=== PATIENT | male | born 1960 | race American Indian/Alaskan Native ===

== ENCOUNTER 2017-06-19 18:15 | Emergency (ER) | payer MEDICARE ==
[2017-06-19 19:25] LABS: Basophils % (Auto) 0.6 % (0.0-1.8); Eosinophils # (Auto) 0.1 K/mm3 (0.0-0.4); Eosinophils % (Auto) 1.8 % (0.0-4.3); Hematocrit 43.7 % (35.5-45.6); Hemoglobin 14.7 gm/dl (11.8-15.2); Lymphocytes % (Auto) 25.7 % (13.4-35.0); Mean Corpuscular HGB Conc 34 % (32-34); Mean Corpuscular Hemoglobin 30 pg (28-32); Mean Corpuscular Volume 89 fl (84-94); Monocytes # (Auto) 0.6 K/mm3 (0.0-0.8); Monocytes % (Auto) 7.4 % (0.0-7.3); Platelet Count 333 K/mm3 (140-440); Red Blood Count 4.89 M/mm3 (3.65-5.03); Red Cell Distribution Width 14.2 % (13.2-15.2)
[2017-06-19 19:37] LABS: Alanine Aminotransferase 13 units/L (7-56); Albumin 3.8 g/dL (3.9-5); BUN/Creatinine Ratio 14; Blood Urea Nitrogen 18 mg/dL (9-20); Calcium 9.1 mg/dL (8.4-10.2); Hemolysis Index 10
--- NOTE | 2017-06-19 21:02 | XRay Report ---
FINAL REPORT EXAM: XR CHEST ROUTINE 2V HISTORY: Upper Respiratory Infection TECHNIQUE: 2 views of the chest. PRIORS: None. FINDINGS: The cardiomediastinal silhouette appears normal. The lungs are clear. The bones and soft tissues are unremarkable. IMPRESSION: No evidence of acute cardiopulmonary disease
[2017-06-19] MEDS ORDERED: MESTINON PO ONE (22:22)
[2017-06-19] MEDS ORDERED: DELTASONE PO ONE (22:22)
[2017-06-19] MEDS ORDERED: PROVENTIL IH ONE (22:24)
--- NOTE | 2017-06-19 22:25 | Emergency Department Report ---
ED Recheck HPI - General Chief Complaint: Upper Respiratory Infection Stated Complaint: RIGHT UPPER CHEST INJURY Time Seen by Provider: 06/19/17 22:07 Source: patient Mode of arrival: Ambulatory Limitations: No Limitations - History of Present Illness Initial Comments: 57-year-old male past medical history myasthenia gravis, asthma presents with request for refill on his Mestinon which she takes for myasthenia gravis. Patient states he has been out of it for approximately 1-1/2 months. Plans to follow up with his primary care doctor and neurologist within the next week and a half. Patient is awake alert and oriented 3. States that he has been having some intermittent weakness associated with this history of myasthenia gravis which is typical when he is not taking his medications on a regular basis. Patient states that earlier today he accidentally turned and hit the right side of his chest on a cabinet at home. Denies any other symptoms. Denies fevers chills nausea vomiting dysuria or hematuria blurry vision or headache. MD Complaint: medication refill request Onset/Timin -: month(s) - Related Data Previous Rx's Medication Instructions Recorded Last Taken Type Acetaminophen/Codeine [Tylenol #3] 1 tab PO Q6H PRN #15 tab 01/26/16 Unknown Rx Ibuprofen [Motrin] 800 mg PO Q8HR PRN #21 tablet 01/26/16 Unknown Rx Albuterol Sulfate [Ventolin Hfa] 1 puff IH Q4H PRN #1 hfa.aer.ad 06/20/17 Unknown Rx Azithromycin [Zithromax Z-MONSERRAT] 250 mg PO QDAY #1 pack 06/20/17 Unknown Rx Prednisone [predniSONE 10 mg 10 mg PO .TAPER #1 tab.ds.pk 06/20/17 Unknown Rx (6-Day Pack, 21 Tabs)] Pyridostigmine [Mestinon] 60 mg PO Q4HR #84 tab 06/20/17 Unknown Rx Allergies Allergy/AdvReac Type Severity Reaction Status Date / Time No Known Allergies Allergy Unverified 01/26/16 07:19 ED Review of Systems ROS: Stated complaint: RIGHT UPPER CHEST INJURY Other details as noted in HPI Constitutional: malaise. denies: chills, fever Eyes: denies: eye pain, eye discharge, vision change ENT: denies: ear pain, throat pain Respiratory: cough. denies: shortness of breath, wheezing Cardiovascular: denies: chest pain, palpitations Endocrine: no symptoms reported Gastrointestinal: denies: abdominal pain, nausea, diarrhea Genitourinary: denies: urgency, dysuria Musculoskeletal: denies: back pain, joint swelling, arthralgia Skin: denies: rash, lesions Neurological: denies: headache, weakness, paresthesias Psychiatric: denies: anxiety, depression Hematological/Lymphatic: denies: easy bleeding, easy bruising ED Past Medical Hx - Past Medical History Hx Hypertension: Yes Hx Arthritis: Yes Additional medical history: myasthenia gravis, bilateral breast reduction, lypoma on back - Surgical History Additional Surgical History: right hip replacement x 2 - Social History Smoking Status: Current Every Day Smoker Substance Use Type: Alcohol - Medications Home Medications: Home Medications Medication Instructions Recorded Confirmed Last Taken Type Acetaminophen/Codeine [Tylenol #3] 1 tab PO Q6H PRN #15 tab 01/26/16 Unknown Rx Ibuprofen [Motrin] 800 mg PO Q8HR PRN #21 tablet 01/26/16 Unknown Rx Albuterol Sulfate [Ventolin Hfa] 1 puff IH Q4H PRN #1 hfa.aer.ad 06/20/17 Unknown Rx Azithromycin [Zithromax Z-MONSERRAT] 250 mg PO QDAY #1 pack 06/20/17 Unknown Rx Prednisone [predniSONE 10 mg 10 mg PO .TAPER #1 tab.ds.pk 06/20/17 Unknown Rx (6-Day Pack, 21 Tabs)] Pyridostigmine [Mestinon] 60 mg PO Q4HR #84 tab 06/20/17 Unknown Rx ED Physical Exam - General Limitations: No Limitations General appearance: alert, in no apparent distress - Head Head exam: Present: atraumatic, normocephalic - Eye Eye exam: Present: normal appearance, PERRL, EOMI - ENT ENT exam: Present: mucous membranes moist - Neck Neck exam: Present: normal inspection - Respiratory Respiratory exam: Present: normal lung sounds bilaterally (lungs clear to auscultation bilaterally). Absent: respiratory distress - Cardiovascular Cardiovascular Exam: Present: regular rate, normal rhythm. Absent: systolic murmur, diastolic murmur, rubs, gallop - GI/Abdominal GI/Abdominal exam: Present: soft (abdomen soft nontender nondistended), normal bowel sounds - Rectal Rectal exam: Present: deferred - Extremities Exam Extremities exam: Present: normal inspection - Back Exam Back exam: Present: normal inspection - Neurological Exam Neurological exam: Present: alert, oriented X3, CN II-XII intact, normal gait - Expanded Neurological Exam Expanded Patient oriented to: Present: person, place, time Cranial nerves: EOM's Intact: Normal Cerebellar function: Finger to Nose: Normal, Heel to Major: Normal, Romberg: Normal Sensory exam: Upper Extremity Light Touch: Normal, Lower Extremity Light Touch: Normal Motor strength exam: RUE: 5, LUE: 5, RLE: 5, LLE: 5 Best Eye Response ([place]): (4) open spontaneously Best Motor Response (Venkat): (6) obeys commands Best Verbal Response ([place]): (5) oriented [place] Total: 15 - Psychiatric Psychiatric exam: Present: normal affect, normal mood - Skin Skin exam: Present: warm, dry, intact, normal color. Absent: rash ED Course Vital Signs 06/19/17 18:19 Temperature 98 F Pulse Rate 80 Respiratory 18 Rate Blood Pressure 178/96 O2 Sat by Pulse 99 Oximetry ED Recheck MDM - Medical Decision Making A/P: Refill on myasthenia gravis medicine, right chest wall discomfort 1-CT shows no acute fractures, old rib fractures on right. No pneumonia. Slight right sided minimal atelectasis. This patient states he has had slight cough which has persisted for 2 weeks will cover patient empirically with azithromycin. Will also provide patient with refill on albuterol 2-prednisone dose pack, will give patient refill on mestinon. pt stated to me that his Neurologist is Dr. Michele Grant with [facility] and that he has arranged for f/u with the next 1.5 weeks. pt provided the following numbers for offices: [phone], . I informed patient that I would give him a limited prescription for this medicine as it is vital that he follows up as an outpatient for his chronic condition. 3- patient can take Tylenol for pain 4- vital signs stable for discharge. I advised patient to return to he ED if he develops fevers chills nausea vomiting chest pain shortness of breath or increasing weakness. Patient stated he understood my instructions Critical care attestation.: If time is entered above; I have spent that time in minutes in the direct care of this critically ill patient, excluding procedure time. ED Disposition Clinical Impression: Medication refill, Myasthenia gravis, Cough, Chest wall pain Disposition: TO HOME OR SELFCARE Is pt being admited?: No Does the pt Need Aspirin: No Condition: Stable Instructions: Myasthenia Gravis (ED), Cold Symptoms (ED) Prescriptions: Albuterol Sulfate [Ventolin Hfa] 1 puff IH Q4H PRN #1 hfa.aer.ad PRN Reason: Cough Azithromycin [Zithromax Z-MONSERRAT] 250 mg PO QDAY #1 pack Prednisone [predniSONE 10 mg (6-Day Pack, 21 Tabs)] 10 mg PO .TAPER #1 tab.ds.pk Pyridostigmine [Mestinon] 60 mg PO Q4HR #84 tab Referrals: ANA MARÍA CANALES MD [Primary Care Provider] - 3-5 Days [facility] [Outside] - 3-5 Days Forms: Work/School Release Form(ED) Time of Disposition: 00:50
[2017-06-19] MEDS ORDERED: TYLENOL #3 PO ONE (22:27)
--- NOTE | 2017-06-20 00:16 | Cat Scan Report ---
FINAL REPORT PROCEDURE: CT CHEST WO CON TECHNIQUE: Computerized axial tomography of the chest was performed without contrast material. This study is performed without intravenous contrast and the sensitivity for pathology, including neoplasms, adenopathy, abscess, pulmonary embolism and aortic dissection, is reduced. HISTORY: s/p fall hit right side ribs, RT UPPER CHEST rib pain COMPARISON: No prior studies are available for comparison. TECHNICAL QUALITY: Satisfactory. FINDINGS: Heart and pericardium: Normal. Thoracic aorta: Normal. Pulmonary vasculature: Normal. Lymph nodes: No enlarged thoracic lymph nodes. Lungs: Slight atelectasis right lower lung. The remainder the lungs are clear. No effusion or pneumothorax. The central airway is patent. Pleural space: No effusion, thickening, or pneumothorax. Musculoskeletal structures: Mild degenerative changes of the thoracic spine. Old healed fractures of the posterior right 9th and 10th ribs.. Upper abdominal structures: No significant abnormality. IMPRESSION: Slight right lower lung atelectasis. No evidence of a consolidation, effusion or pneumothorax. Old healed rib fractures involving the right posterior 9th and 10th ribs. Mild arthritic change of the thoracic spine..
[2017-06-20 03:09] VITALS: BP 173/86
== END 2017-06-20 01:05 | disposition home or self-care (01) ==
LOC: ED 18:15
DX: G70.00 Myasthenia gravis without (acute) exacerbation (principal); R07.89 Other chest pain; I10 Essential (primary) hypertension; M19.90 Unspecified osteoarthritis, unspecified site; F17.200 Nicotine dependence, unspecified, uncomplicated
CPT/HCPCS: 36415; 71046; 71250; 80053; 85025; 99284; J7512

== ENCOUNTER 2017-11-24 05:32 | Emergency (ER) | payer MEDICARE ==
[2017-11-24] MEDS ORDERED: DELTASONE PO ONE (07:51)
[2017-11-24] MEDS ORDERED: NORVASC PO ONE (07:51)
--- NOTE | 2017-11-24 07:53 | Emergency Department Report ---
ED General Adult HPI - General Chief complaint: Medical Clearance Stated complaint: RX REFILL Time Seen by Provider: 11/24/17 07:35 Source: patient Mode of arrival: Ambulatory Limitations: No Limitations - History of Present Illness Initial comments: This is a 57-year-old male reports that he is out of his myasthenic gravis medication which is Mestinon 60 mg every 4 hours, and he feels like he is having a flareup and he would like to get a refill. Patient stated that he does not have transportation to get to his doctor in unit in and he has not seen his doctor because of lack of transportation but he needs a referral to a neurologist and also to her primary care. Patient saw Dr. Liu was a neurologist at [facility]. He reports some shortness of breath and think it is because he has been out of his myasthenic gravis medication and he is having a flare up. Denies any chest pain. Denies any nausea or vomiting. Denies any headache but report nasal congestion and runny nose for over 2 weeks. He denies any fever or chills. Patient has a history of high blood pressure and he is on Norvasc and Diovan and is requesting a refill of that also. Denies any pain. Blood pressure is 175/104. Denies any blurred vision or dizziness. Patient was here in June 2017 and he said that he saw is in [place] in August and August and he gave him 90 days supply of medication but she said he completed the end of October . He said he is supposed to have follow-up visit in the first week of November but he could not get a ride and so cannot get a ride to [place]. Complaint: shortness of breath and medication refill Associated Symptoms: cough, shortness of breath, other (nasal congestion and runny nose). denies: confusion, chest pain, diaphoresis, fever/chills, headaches, loss of appetite, malaise, nausea/vomiting, syncope, weakness - Related Data Previous Rx's Medication Instructions Recorded Last Taken Type Acetaminophen/Codeine [Tylenol #3] 1 tab PO Q6H PRN #15 tab 01/26/16 Unknown Rx Ibuprofen [Motrin] 800 mg PO Q8HR PRN #21 tablet 01/26/16 Unknown Rx Acetaminophen [Acetaminophen TAB] 500 mg PO Q6HR PRN #20 tablet 06/20/17 Unknown Rx Albuterol Sulfate [Ventolin Hfa] 1 puff IH Q4H PRN #1 hfa.aer.ad 06/20/17 Unknown Rx Prednisone [predniSONE 10 mg 10 mg PO .TAPER #1 tab.ds.pk 06/20/17 Unknown Rx (6-Day Pack, 21 Tabs)] Amlodipine Besylate [Norvasc] 10 mg PO QAM 14 Days #14 tablet 11/24/17 Unknown Rx Azithromycin [Zithromax Z-PARISH] 250 mg PO QDAY #1 pack 11/24/17 Unknown Rx Fluticasone [Flonase] 1 spray NS QDAY 14 Days #1 bottle 11/24/17 Unknown Rx Pyridostigmine [Mestinon] 60 mg PO Q4HR #42 tab 11/24/17 Unknown Rx Valsartan [Diovan] 80 mg PO QAM 14 Days #14 tablet 11/24/17 Unknown Rx amLODIPine [Norvasc] 10 mg PO DAILY 14 Days #14 tab 11/24/17 Unknown Rx predniSONE [Deltasone] 10 mg PO BID 14 Days #28 tab 11/24/17 Unknown Rx Allergies Allergy/AdvReac Type Severity Reaction Status Date / Time No Known Allergies Allergy Unverified 01/26/16 07:19 ED Review of Systems ROS: Stated complaint: RX REFILL Other details as noted in HPI ED Past Medical Hx - Past Medical History Previous Medical History?: Yes Hx Hypertension: Yes Hx Arthritis: Yes Additional medical history: myasthenia gravis, bilateral breast reduction, lypoma on back - Surgical History Past Surgical History?: Yes Additional Surgical History: right hip replacement x 2 - Family History Family history: hypertension - Social History Smoking Status: Former Smoker Substance Use Type: None - Medications Home Medications: Home Medications Medication Instructions Recorded Confirmed Last Taken Type Acetaminophen/Codeine [Tylenol #3] 1 tab PO Q6H PRN #15 tab 01/26/16 Unknown Rx Ibuprofen [Motrin] 800 mg PO Q8HR PRN #21 tablet 01/26/16 Unknown Rx Acetaminophen [Acetaminophen TAB] 500 mg PO Q6HR PRN #20 tablet 06/20/17 Unknown Rx Albuterol Sulfate [Ventolin Hfa] 1 puff IH Q4H PRN #1 hfa.aer.ad 06/20/17 Unknown Rx Prednisone [predniSONE 10 mg 10 mg PO .TAPER #1 tab.ds.pk 06/20/17 Unknown Rx (6-Day Pack, 21 Tabs)] Amlodipine Besylate [Norvasc] 10 mg PO QAM 14 Days #14 tablet 11/24/17 Unknown Rx Azithromycin [Zithromax Z-PARISH] 250 mg PO QDAY #1 pack 11/24/17 Unknown Rx Fluticasone [Flonase] 1 spray NS QDAY 14 Days #1 bottle 11/24/17 Unknown Rx Pyridostigmine [Mestinon] 60 mg PO Q4HR #42 tab 11/24/17 Unknown Rx Valsartan [Diovan] 80 mg PO QAM 14 Days #14 tablet 11/24/17 Unknown Rx amLODIPine [Norvasc] 10 mg PO DAILY 14 Days #14 tab 11/24/17 Unknown Rx predniSONE [Deltasone] 10 mg PO BID 14 Days #28 tab 11/24/17 Unknown Rx ED Physical Exam - General Limitations: No Limitations General appearance: alert, in no apparent distress - Head Head exam: Present: atraumatic, normocephalic, normal inspection, other - Eye Eye exam: Present: normal appearance, PERRL, EOMI. Absent: nystagmus Pupils: Present: normal accommodation - ENT ENT exam: Present: normal orophraynx, mucous membranes moist, normal external ear exam, other (pattern nasal mucosa congested with erythema and clear drainage ). Absent: normal exam, TM's normal bilaterally (bilateral TM congested without erythema) - Neck Neck exam: Present: normal inspection, tenderness, full ROM. Absent: meningismus, lymphadenopathy - Respiratory Respiratory exam: Present: normal lung sounds bilaterally, other (dry cough). Absent: respiratory distress, wheezes, rales, rhonchi, stridor, chest wall tenderness, accessory muscle use, decreased breath sounds, prolonged expiratory - Cardiovascular Cardiovascular Exam: Present: regular rate, normal rhythm, normal heart sounds. Absent: systolic murmur, diastolic murmur - GI/Abdominal GI/Abdominal exam: Present: soft, normal bowel sounds. Absent: tenderness - Extremities Exam Extremities exam: Present: normal inspection, full ROM, normal capillary refill , other (No cce. + 2 pulses in all extremities, no neurovascular compromise). Absent: tenderness, pedal edema, joint swelling, calf tenderness - Back Exam Back exam: Present: normal inspection, full ROM. Absent: tenderness, CVA tenderness (R), CVA tenderness (L), muscle spasm, paraspinal tenderness, vertebral tenderness, rash noted - Neurological Exam Neurological exam: Present: alert, oriented X3, normal gait, reflexes normal. Absent: motor sensory deficit - Expanded Neurological Exam Expanded Neurological exam: Absent: innattentive, memory loss-remote event, memory loss- recent event, ataxia, receptive aphasia, expressive aphasia, total aphasia, tremor, protecting the airway Patient oriented to: Present: person, place, time Cranial nerves: EOM's Intact: Normal Upper motor neuron: Sensory Extinction: Normal Motor strength exam: RUE: 5, LUE: 5, RLE: 5, LLE: 5 Best Eye Response (Venkat): (4) open spontaneously Best Motor Response (Venkat): (6) obeys commands Best Verbal Response (Venkat): (5) oriented [place] Total: 15 - Psychiatric Psychiatric exam: Present: normal affect, normal mood - Skin Skin exam: Present: warm, dry, intact, normal color. Absent: rash ED Course Vital Signs 11/24/17 11/24/17 05:40 08:03 Temperature 97.9 F Pulse Rate 89 88 Respiratory 18 Rate Blood Pressure 175/104 175/100 O2 Sat by Pulse 98 Oximetry Vital Signs 11/24/17 11/24/17 11/24/17 05:40 08:03 09:20 Temperature 97.9 F Pulse Rate 89 88 Respiratory 18 Rate Blood Pressure 175/104 175/100 Blood Pressure 162/88 [Left] O2 Sat by Pulse 98 Oximetry - Reevaluation(s) Reevaluation #1: 11/24/17 08:42 Patient received Norvasc 5 mg by mouth and Deltasone 60 mg by mouth in emergency room ED Medical Decision Making - Lab Data Result diagrams: 11/24/17 08:17 11/24/17 08:15 Lab Results 11/24/17 11/24/17 Range/Units 08:15 08:17 WBC 6.5 (4.5-11.0) K/mm3 RBC 5.18 H (3.65-5.03) M/mm3 Hgb 15.7 H (11.8-15.2) gm/dl Hct 45.7 H (35.5-45.6) % MCV 88 (84-94) fl MCH 30 (28-32) pg MCHC 34 (32-34) % RDW 14.2 (13.2-15.2) % Plt Count 266 (140-440) K/mm3 Lymph % (Auto) 46.0 H (13.4-35.0) % Mobile % (Auto) 9.2 H (0.0-7.3) % Eos % (Auto) 2.0 (0.0-4.3) % Baso % (Auto) 0.5 (0.0-1.8) % Lymph # 3.0 (1.2-5.4) K/mm3 Mobile # 0.6 (0.0-0.8) K/mm3 Eos # 0.1 (0.0-0.4) K/mm3 Baso # 0.0 (0.0-0.1) K/mm3 Seg Neutrophils % 42.3 (40.0-70.0) % Seg Neutrophils # 2.8 (1.8-7.7) K/mm3 Sodium 141 (137-145) mmol/L Potassium 4.5 (3.6-5.0) mmol/L Chloride 105.0 (98-107) mmol/L Carbon Dioxide 26 (22-30) mmol/L Anion Gap 15 mmol/L BUN 11 (9-20) mg/dL Creatinine 1.6 H (0.8-1.5) mg/dL Estimated GFR 54 ml/min BUN/Creatinine Ratio 7 % Glucose 101 H (75-100) mg/dL Calcium 9.2 (8.4-10.2) mg/dL Patient creatinine has been a previously in the past but after reviewing chart is current was 1.5 in June 2016 and the said in the past that this pain up with his primary care doctor checked it - Radiology Data Radiology results: report reviewed Chest x-ray 2 views dictated by radiologist and report reviewed by myself. Patient's with mild COPD without any acute abnormalities. Patient: EDSON GONZALEZ MR#: [id number] : 1960 Acct:[id number] Age/Sex: 57 / M ADM Date: 11/24/17 Loc: ED Attending Dr: Ordering Physician: MATIAS PETERSEN Date of Service: 11/24/17 Procedure(s): XR chest routine 2V Accession Number(s): [id number] cc: MATIAS PETERSEN Fluoro Time In Minutes: CHEST 2 VIEWS INDICATION: Shortness of breath. COMPARISON: 06/19/2017 FINDINGS: PA and lateral chest radiographs demonstrate normal cardiomediastinal silhouette. Clear, mildly hyperexpanded lungs. No pleural effusions or CHF. Lower thoracic spine degenerative osteophytes. CONCLUSION: Mild COPD without acute chest process, as described. Thank you for the opportunity to participate in this patient's care. Transcribed By: RS Dictated By: VINNIE HUTTON MD Electronically Authenticated By: VINNIE HUTTON MD Signed Date/Time: 11/24/17817 DD/ 5 TD/TT: 11/24/17817 - Medical Decision Making This is a 57-year-old male he reports that he is out of his myasthenia gravis medication and he would like a refill because he feels short of breath. He said he saw his doctor in unit last in August 2017 and he received 90 day supplies of his medication but now he could not get to his doctor's appointment in the first week of November and is out of his medication and he said these fearing that he skin flareup. He is also on blood pressure medication and his blood pressure is 175/104 without any symptoms. Other vital signs are stable. Diagnostics: X-ray of the chest reveals COPD without any acute cardiopulmonary processes Labs: CBC stable except his hemoglobin and hematocrit elevated comparing to . BMP stable except creatinine is 1.6 and on for 2018 it was 1.5. Patient reports that he does have a history of his creatinine being elevated. Assessment/plan 1: Upper respiratory with cough and congestion-patient given Deltasone 60 mg by mouth and will be discharged home on prednisone, Z-Parish and Flonase. 2: Shortness of breath-chest x-ray negative findings for any acute cardiopulmonary processes but he does have mild COPD and his pulse ox is 98% on room air without any difficulty and breathing. 3: Elevated creatinine-1.6 patient instructed to increase her fluid intake to at least 2-3 L of fluid daily multiple mostly water and to avoid medications that are toxic to his kidney and I explained these medication and details the patient. I will also refer him to nephrology. 4: Personal history of myasthenia gravis-patient requesting neurology referral and we will refer him to neurologist. 5: Hypertension, chronic-patient given Norvasc 10 mg by mouth and I will restart is Norvasc and Diovan and refer him to primary care which is outside [facility] and Dr. Reynaldo Bustillos for management of chronic hypertension. Patient educated on need to follow up with primary care doctor and also neurologist to manage his chronic medical problems. I discussed with him that I will renew his myasthenia gravis medication and other medication today. I will not be very renew it in the future because he needs to be managed by a primary care doctor. He does have access to primary care but he does not have transportation inside told him that he needs to call schedule appointment today so he will have time to set up for transportation. I discussed with them that his creatinine is elevated at 1.6 which is minimally elevated but he needs to increase his fluid intake and it is very imperative that he does go to primary care and to a cold working inspector to manage this. He was educated and results of x- ray and laboratory results, diagnosis and medication and he voiced understanding. Patient discharged home in stable condition. Vital signs stable and he is afebrile and he was given prescription for Mestinon, prednisone , Flonase and azithromycin pack. - Differential Diagnosis PNA, sinusitis, upper respiratory with cough and congestion Critical care attestation.: If time is entered above; I have spent that time in minutes in the direct care of this critically ill patient, excluding procedure time. ED Disposition Clinical Impression: URI with cough and congestion, H/O myasthenia gravis, Medication refill, Noncompliance with medications, Elevated serum creatinine Hypertension Qualifiers: Hypertension type: essential hypertension Qualified Code(s): I10 - Essential ( primary) hypertension COPD (chronic obstructive pulmonary disease) Qualifiers: COPD type: unspecified COPD Qualified Code(s): J44.9 - Chronic obstructive pulmonary disease, unspecified Disposition: - TO HOME OR SELFCARE Is pt being admited?: No Does the pt Need Aspirin: No Condition: Stable Instructions: Hypertension (ED), Chronic Obstructive Pulmonary Disease (ED), Low Sodium Diet (ED), DASH Eating Plan (ED), Impaired Kidney Function (ED), Primidone (By mouth), Myasthenia Gravis (ED), Upper Respiratory Infection (ED) Additional Instructions: Increasing fluid intake to at least 2-3 L of Please refer from taking medication that her toxic to kidneys as discussed. See referral to a cold working inspector in manage elevated creatinine, neurologists to manage her myasthenia gravis and primary care to manage her hypertension. Please call today to schedule an appointment for visit. You need to see primary care in 2-3 days Take medication as prescribed Prescriptions: amLODIPine [Norvasc] 10 mg PO DAILY 14 Days #14 tab Amlodipine Besylate [Norvasc] 10 mg PO QAM 14 Days #14 tablet Azithromycin [Zithromax Z-PARISH] 250 mg PO QDAY #1 pack Fluticasone [Flonase] 1 spray NS QDAY 14 Days #1 bottle predniSONE [Deltasone] 10 mg PO BID 14 Days #28 tab Pyridostigmine [Mestinon] 60 mg PO Q4HR #42 tab Valsartan [Diovan] 80 mg PO QAM 14 Days #14 tablet Referrals: PRIMARY CAREMD [Primary Care Provider] - 11/27/17 [facility] [Outside] - 11/27/17 REYNALDO BUSTILLOS MD [Staff Physician] - 11/27/17
--- NOTE | 2017-11-24 08:21 | XRay Report ---
CHEST 2 VIEWS INDICATION: Shortness of breath. COMPARISON: 06/19/2017 FINDINGS: PA and lateral chest radiographs demonstrate normal cardiomediastinal silhouette. Clear, mildly hyperexpanded lungs. No pleural effusions or CHF. Lower thoracic spine degenerative osteophytes. CONCLUSION: Mild COPD without acute chest process, as described. Thank you for the opportunity to participate in this patient's care.
[2017-11-24 08:29] LABS: Basophils % (Auto) 0.5 % (0.0-1.8); Eosinophils # (Auto) 0.1 K/mm3 (0.0-0.4); Hematocrit 45.7 % (35.5-45.6); Hemoglobin 15.7 gm/dl (11.8-15.2); Mean Corpuscular HGB Conc 34 % (32-34); Mean Corpuscular Hemoglobin 30 pg (28-32); Mean Corpuscular Volume 88 fl (84-94); Monocytes # (Auto) 0.6 K/mm3 (0.0-0.8); Monocytes % (Auto) 9.2 % (0.0-7.3); Platelet Count 266 K/mm3 (140-440); Red Blood Count 5.18 M/mm3 (3.65-5.03); Red Cell Distribution Width 14.2 % (13.2-15.2)
[2017-11-24 08:42] LABS: Calcium 9.2 mg/dL (8.4-10.2)
[2017-11-24 09:35] VITALS: BP 154/84
== END 2017-11-24 09:34 | disposition home or self-care (01) ==
LOC: ED 05:32
DX: J06.9 Acute upper respiratory infection, unspecified (principal); I10 Essential (primary) hypertension; J44.9 Chronic obstructive pulmonary disease, unspecified; G70.01 Myasthenia gravis with (acute) exacerbation; M19.90 Unspecified osteoarthritis, unspecified site; Z76.0 Encounter for issue of repeat prescription; Z96.641 Presence of right artificial hip joint; Z87.891 Personal history of nicotine dependence
CPT/HCPCS: 36415; 71046; 80048; 85025; 99284; J7512

== ENCOUNTER 2018-07-09 08:29 | Observation (INO) | payer MEDICARE ==
[2018-07-09] MEDS ORDERED: ASPIRIN PO ONE (09:01)
[2018-07-09 09:49] LABS: BUN/Creatinine Ratio 13; Blood Urea Nitrogen 19 mg/dL (9-20); Calcium 8.3 mg/dL (8.4-10.2); Hemolysis Index 12
[2018-07-09] MEDS ORDERED: NITRO-BID 2% TP ONE (10:12)
--- NOTE | 2018-07-09 10:16 | Emergency Department Report ---
HPI - General Chief Complaint: Chest Pain Time Seen by Provider: 07/09/18 09:52 - HPI HPI: Room 5 The patient is a 4-year-old male presenting with a chief complaint of shortness of breath and chest heaviness. Patient states his symptoms began last night with shortness of breath. Patient states he felt like he could not get enough air. The patient states at approximately 02:00 this morning he developed chest heaviness feeling as though there was a weight on his chest. Patient admits to slight diaphoresis with this heaviness but denies nausea/vomiting. Patient admits to occasional cough productive of dark sputum. Patient denies history of fever. Patient states she's never had a stress test or cardiac catheterization. 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 - Surgical History Past Surgical History?: Yes Additional Surgical History: right hip replacement x 2 - Family History Family history: no significant - Social History Smoking Status: Current Every Day Smoker (1/7 pack Per day) Substance Use Type: None (denies illicit drug use) - Medications Home Medications: Home Medications Medication Instructions Recorded Confirmed Last Taken Type Acetaminophen/Codeine [Tylenol #3] 1 tab PO Q6H PRN #15 tab 01/26/16 07/09/18 Unknown Rx Ibuprofen [Motrin] 800 mg PO Q8HR PRN #21 tablet 01/26/16 07/09/18 Unknown Rx Acetaminophen [Acetaminophen TAB] 500 mg PO Q6HR PRN #20 tablet 06/20/17 07/09/18 Unknown Rx Albuterol Sulfate [Ventolin Hfa] 1 puff IH Q4H PRN #1 hfa.aer.ad 06/20/17 07/09/18 Unknown Rx Fluticasone [Flonase] 1 spray NS QDAY 14 Days #1 bottle 11/24/17 07/09/18 Unknown Rx Pyridostigmine [Mestinon] 60 mg PO Q4HR #42 tab 11/24/17 07/09/18 Unknown Rx Valsartan [Diovan] 80 mg PO QAM 14 Days #14 tablet 11/24/17 07/09/18 Unknown Rx amLODIPine [Norvasc] 10 mg PO DAILY 14 Days #14 tab 11/24/17 07/09/18 Unknown Rx ED Review of Systems ROS: Stated complaint: CHEST PAIN Other details as noted in HPI Constitutional: diaphoresis Eyes: denies: eye pain ENT: denies: throat pain Respiratory: shortness of breath Cardiovascular: chest pain Endocrine: no symptoms reported Gastrointestinal: denies: nausea, vomiting Genitourinary: denies: dysuria Musculoskeletal: denies: back pain Neurological: denies: headache Physical Exam - Physical Exam Vital Signs: Vital Signs 07/09/18 07/09/18 08:40 08:43 Temperature 97.7 F Pulse Rate 90 90 Respiratory 17 Rate Blood Pressure 160/90 O2 Sat by Pulse 98 Oximetry Physical Exam: GENERAL: The patient is well-developed well-nourished male lying on stretcher not appear to be in acute distress. [] HEENT: Normocephalic. Atraumatic. Extraocular motions are intact. Patient has moist mucous membranes. NECK: Supple. Trachea midline CHEST/LUNGS: Clear to auscultation. There is no respiratory distress noted. HEART/CARDIOVASCULAR: Regular. There is no tachycardia. There is no gallop rub or murmur. ABDOMEN: Abdomen is soft, nontender. Patient has normal bowel sounds. There is no abdominal distention. SKIN: There is no rash. There is no edema. There is no diaphoresis. NEURO: The patient is awake, alert, and oriented. The patient is cooperative. The patient has normal speech MUSCULOSKELETAL: There is no evidence of acute injury. ED Course Vital Signs 07/09/18 07/09/18 08:40 08:43 Temperature 97.7 F Pulse Rate 90 90 Respiratory 17 Rate Blood Pressure 160/90 O2 Sat by Pulse 98 Oximetry ED Medical Decision Making - Lab Data Result diagrams: 07/09/18 09:21 07/09/18 09:16 - EKG Data -: EKG Interpreted by Me EKG shows normal: sinus rhythm Rate: normal - EKG Data When compared to previous EKG there are: previous EKG unavailable Interpretation: nonspecific ST-T wave teresa (T-wave inversions in leads 2, 3, aVF, V4, V5, V6.) - Radiology Data Radiology results: report reviewed (CT chest), image reviewed (chest x-ray, CT chest) interpreted by me: Chest x-ray-no focal infiltrates, no pneumothorax [facility] [address] [place] [address] Cat Scan Report Signed Patient: EDSON GONZALEZ MR#: [id number] 2 : 1960 Acct:[id number] Age/Sex: 58 / M ADM Date: 07/09/18 Loc: ED Attending Dr: Ordering Physician: CEDRIC LOMBARDI MD Date of Service: 07/09/18 Procedure(s): CT angio chest Accession Number(s): [id number] cc: CEDRIC LOMBARDI MD CTA CHEST: HISTORY: Chest pain, shortness of breath. COMPARISON: none. TECHNIQUE: Helical CT in 1.25mm intervals following IV contrast. Pulmonary embolus protocol. Sagittal and coronal reformatted images. Rotational MIP images. FINDINGS: Contrast bolus is satisfactory. No pulmonary embolus is identified. Thyroid gland: Normal. Tracheobronchial tree: Normal. Esophagus: Normal. Heart: Heart size is within normal limits although the left ventricle appears mildly dilated. Pericardium: Normal. Mediastinum: Normal. Lung Kahn: Mild centrilobular emphysematous changes are identified in the upper lobes. The lungs are clear otherwise. No mass or infiltrate. Pleural Spaces: Normal. Musculoskeletal: Intact. Mild thoracic spondylosis. IMPRESSION: No evidence for pulmonary embolus. Mild emphysematous changes. Heart size is is within normal limits although the left ventricle appears mildly dilated. Transcribed By: TTR Dictated By: CONCEPCIÓN GARCIA JR, MD Electronically Authenticated By: CONCEPCIÓN GARCIA JR, MD Signed Date/Time: 07/09/18 111 DD/ 17 TD/TT: 07/09/18 111 - Differential Diagnosis ACS, PE, pericarditis, GERD Critical care attestation.: If time is entered above; I have spent that time in minutes in the direct care of this critically ill patient, excluding procedure time. ED Disposition Clinical Impression: Chest heaviness, Shortness of breath Disposition: OP ADMIT IP TO THIS HOSP Is pt being admited?: Yes Does the pt Need Aspirin: Yes Condition: Fair Instructions: Chest Pain (ED) Time of Disposition: 11:38 (hospitalist paged (Dr Pichardo))
[2018-07-09 10:37] LABS: Basophils % (Auto) 0.7 % (0.0-1.8); Eosinophils # (Auto) 0.2 K/mm3 (0.0-0.4); Eosinophils % (Auto) 3.5 % (0.0-4.3); Hematocrit 47.1 % (35.5-45.6); Hemoglobin 16.1 gm/dl (11.8-15.2); Lymphocytes # (Auto) 1.9 K/mm3 (1.2-5.4); Lymphocytes % (Auto) 43.4 % (13.4-35.0); Mean Corpuscular HGB Conc 34 % (32-34); Mean Corpuscular Volume 90 fl (84-94); Monocytes # (Auto) 0.5 K/mm3 (0.0-0.8); Monocytes % (Auto) 10.9 % (0.0-7.3); Platelet Count 289 K/mm3 (140-440); Red Blood Count 5.24 M/mm3 (3.65-5.03); Red Cell Distribution Width 14.4 % (13.2-15.2)
--- NOTE | 2018-07-09 10:40 | XRay Report ---
AP CHEST: HISTORY: chest pain AP view of the chest demonstrates a normal mediastinal and cardiac contour with clear lungs and normal bony and soft tissue structures. IMPRESSION: Unremarkable AP chest.
[2018-07-09 11:04] VITALS: BP 199/89
--- NOTE | 2018-07-09 11:24 | Cat Scan Report ---
CTA CHEST: HISTORY: Chest pain, shortness of breath. COMPARISON: none. TECHNIQUE: Helical CT in 1.25mm intervals following IV contrast. Pulmonary embolus protocol. Sagittal and coronal reformatted images. Rotational MIP images. FINDINGS: Contrast bolus is satisfactory. No pulmonary embolus is identified. Thyroid gland: Normal. Tracheobronchial tree: Normal. Esophagus: Normal. Heart: Heart size is within normal limits although the left ventricle appears mildly dilated. Pericardium: Normal. Mediastinum: Normal. Lung Kahn: Mild centrilobular emphysematous changes are identified in the upper lobes. The lungs are clear otherwise. No mass or infiltrate. Pleural Spaces: Normal. Musculoskeletal: Intact. Mild thoracic spondylosis. IMPRESSION: No evidence for pulmonary embolus. Mild emphysematous changes. Heart size is is within normal limits although the left ventricle appears mildly dilated.
== END 2018-07-09 12:50 | disposition left against medical advice (07) ==
LOC: ED 08:29 → 4A 11:41
PROVIDERS: ADMIT Internal Medicine; ATTEND Internal Medicine
DX: R07.89 Other chest pain (principal); R06.02 Shortness of breath; I10 Essential (primary) hypertension; F17.210 Nicotine dependence, cigarettes, uncomplicated; Z96.641 Presence of right artificial hip joint
CPT/HCPCS: 36415; 71045; 71275; 80048; 84484; 85025; 93005; 93010; 99284; G0378; Q9967

== ENCOUNTER 2020-05-21 06:38 | Day surgery (SDC) | payer MEDICARE ==
[2020-05-21] MEDS ORDERED: ASPIRIN EC 325 MG TAB PO SCH (07:01)
[2020-05-21 07:41] LABS: Basophils % (Auto) 0.6 % (0.0-1.8); Eosinophils # (Auto) 0.1 K/mm3 (0.0-0.4); Eosinophils % (Auto) 1.4 % (0.0-4.3); Hematocrit 42.8 % (35.5-45.6); Hemoglobin 15.2 gm/dl (11.8-15.2); Lymphocytes # (Auto) 2.4 K/mm3 (1.2-5.4); Lymphocytes % (Auto) 33.7 % (13.4-35.0); Mean Corpuscular HGB Conc 36 % (32-34); Mean Corpuscular Volume 90 fl (84-94); Monocytes # (Auto) 0.7 K/mm3 (0.0-0.8); Monocytes % (Auto) 9.1 % (0.0-7.3); Platelet Count 309 K/mm3 (140-440); Red Blood Count 4.76 M/mm3 (3.65-5.03); Red Cell Distribution Width 13.9 % (13.2-15.2)
[2020-05-21 07:50] LABS: INR 0.91 (0.87-1.13)
[2020-05-21 07:51] LABS: Partial Thromboplastin Time 27.5 Sec. (24.2-36.6)
[2020-05-21 07:52] LABS: Calcium 9.1 mg/dL (8.4-10.2)
[2020-05-21] MEDS ORDERED: SODIUM CHLORIDE 0.9% 500 ML 500 ML IV SCH (08:00)
[2020-05-21] MEDS ORDERED: HEPARIN/NS 5000 UNIT/500ML 1,000 ML IR ONE (11:57)
[2020-05-21] MEDS ORDERED: LIDOCAINE (2%) 20 MG/1 ML VIAL 20 ML MDV INFILTRATI ONE ×2 (11:57→12:57)
[2020-05-21] MEDS: fentaNYL 100 MCG/2 ML INJ ONE ×2 (12:20→12:49)
[2020-05-21] MEDS: HEPARIN 10,000 UNITS/10 ML VIAL ONE ×2 (12:21→12:59)
[2020-05-21] MEDS: VERAPAMIL 5 MG/2 ML INJ ONE ×2 (12:21→13:00)
[2020-05-21] MEDS: NITROGLYCERIN SYRINGE 3 ML ONE ×2 (12:21→13:02)
[2020-05-21] MEDS: MIDAZOLAM 2 MG/2 ML INJ ONE ×2 (12:21→12:49)
[2020-05-21] MEDS ORDERED: MIDAZOLAM 2 MG/2 ML INJ IV ONE ×2 (12:58)
[2020-05-21] MEDS ORDERED: fentaNYL 100 MCG/2 ML INJ IV ONE (12:59)
[2020-05-21] MEDS ORDERED: HYDROcodone/ACETAMINOPHEN 5-325 MG TAB PO PRN (13:26)
[2020-05-21] MEDS ORDERED: traMADol 50 MG TAB PO PRN (13:26)
--- NOTE | 2020-05-21 13:28 | Discharge Summary ---
Short Stay Discharge Plan Activity: advance as tolerated Weight Bearing Status: Full Weight Bearing Diet: low fat, low cholesterol, low salt Wound: keep clean and dry Special Instructions: smoking cessation, no heavy lifting (3 days) Follow up with: PRIMARY CAREMD [Primary Care Provider] - 7 Days BETY LAY MD [Staff Physician] - 7 Days
[2020-05-21] MEDS ORDERED: SODIUM CHLORIDE 0.9% 1000 ML 1,000 ML IV SCH (13:30)
--- NOTE | 2020-05-21 13:31 | Cardiac Catherization Report ---
CARDIAC CATHETERIZATION REPORT REASON FOR PROCEDURE: Abnormal thallium stress test, dilated cardiomyopathy. PROCEDURES: I was present for the entire procedure and supervised the moderate sedation protocol. 1. Left heart catheterization. 2. Selective left and right coronary angiography. 3. Left ventricular angiography. 4. Sedation time, start 1249 hours, end 1313 hours. DESCRIPTION OF PROCEDURE: The patient was prepped and draped in a sterile fashion after informed consent. The right radial cath site was prepped and draped after a negative Eric's test. The right radial artery was entered using Seldinger technique followed by placement of a 6-Yi hydrophilic sheath. Routine radial cocktail was administered via the sheath. Selective left and right coronary angiography was performed using a #3.5 left Maged and #4 right Maged. A pigtail catheter was used for left ventricular angiography. The catheters were then removed, sheath removed, and hemostasis achieved using a TR band. The patient was returned to the post-procedure unit in stable condition. There were no complications. FINDINGS: HEMODYNAMICS: Left ventricular end-diastolic pressure was 22, following coronary angiography. Ascending aortic pressure was 130/71. There was no significant pressure gradient on pullback across the aortic valve. CORONARY ANGIOGRAPHY: The left main coronary artery was angiographically normal. The left anterior descending artery and its diagonal branches were angiographically normal. The circumflex artery and its obtuse marginal branches were angiographically normal. The right coronary artery was dominant and similarly angiographically normal. The left ventricle was at least moderately dilated. There was severe left ventricular systolic dysfunction, diffuse hypokinesis, left ventricular ejection fraction approximately 20%. CONCLUSIONS: 1. Angiographically normal coronary arteries. 2. Dilated, nonischemic cardiomyopathy, severe left ventricular systolic dysfunction, ejection fraction approximately 20%. RECOMMENDATION: Medical therapy for dilated, nonischemic cardiomyopathy. JOB# [id number] CA/NTS
[2020-05-21 16:18] VITALS: BP 147/81
== END 2020-05-21 06:39 | disposition home or self-care (01) ==
LOC: CATHLABREC 06:38
PROVIDERS: ATTEND Internal Medicine Cardiovascular Disease
DX: R94.39 Abnormal result of other cardiovascular function study (principal); I42.0 Dilated cardiomyopathy; F17.210 Nicotine dependence, cigarettes, uncomplicated; I10 Essential (primary) hypertension; M19.90 Unspecified osteoarthritis, unspecified site; F32.9 Major depressive disorder, single episode, unspecified; Z82.5 Family history of asthma and other chronic lower respiratory diseases; Z79.82 Long term (current) use of aspirin; Z98.890 Other specified postprocedural states; Z83.3 Family history of diabetes mellitus; Z80.8 Family history of malignant neoplasm of other organs or systems; Z79.899 Other long term (current) drug therapy
CPT/HCPCS: 36415; 80048; 85025; 85610; 85730; 93005; 93458; 99156; 99157; C1894; J1644; J2250; J3010; J7040; Q9967